=== PATIENT | female | born 1990 | race Caucasian/White ===

== ENCOUNTER 2016-02-23 11:18 | Inpatient (IN) | payer BC, MEDICAID ==
[~2016-02-23] VITALS: Ht 167.6 cm; Wt 77.1 kg
[2016-02-23 11:56] VITALS: BMI 27.4
[2016-02-23] MEDS ORDERED: TERBUTALINE 1 MG/ML VIAL SUBQ PRN (13:50)
[2016-02-23] MEDS ORDERED: FAMOTIDINE 20 MG INJ IV PRN (13:50)
[2016-02-23] MEDS ORDERED: LIDOCAINE 1% 30 ML PF INFILTRATE ONE (13:50)
[2016-02-23] MEDS ORDERED: LIDOCAINE 1% BUFFERED 1 ML SYR INTRADERM PRN (13:50)
[2016-02-23] MEDS ORDERED: PROMETHAZINE 25 MG/ML VIAL IV PRN (13:50)
[2016-02-23] MEDS ORDERED: METOCLOPRAMIDE 10 MG/2 ML VIAL IV PUSH PRN (13:50)
[2016-02-23] MEDS ORDERED: ONDANSETRON 4 MG VIAL IV PRN (13:50)
[2016-02-23] MEDS ORDERED: CEFAZOLIN (LD/OB) 100 ML IV PRN (13:50)
[2016-02-23] MEDS ORDERED: ALU/MAG/SIM 30 ML UDC PO PRN (13:50)
[2016-02-23] MEDS ORDERED: FAMOTIDINE 20 MG TAB PO PRN (13:50)
[2016-02-23] MEDS ORDERED: LACT RINGERS 1,000 ML IV SCH (13:50)
[2016-02-23] MEDS ORDERED: OXYTOCIN 15 UNITS/250 ML NS 250 ML IV SCH ×2 (13:50→22:40)
[2016-02-23] MEDS ORDERED: ACETAMINOPHEN 325 MG TAB PO PRN (13:50)
[2016-02-23] MEDS ORDERED: FENTANYL 100 MCG/2 ML AMP ONE (14:40)
[2016-02-23] MEDS ORDERED: ROPIV/FENT 0.2%-2MCG/ML 100 ML EPIDURAL ONE (14:40)
[2016-02-23] MEDS ORDERED: LACT RINGERS 500 ML IV PRN (15:30)
[2016-02-23] MEDS ORDERED: SODIUM CHLORIDE 0.9% 500 ML IV PRN (15:30)
[2016-02-23] MEDS ORDERED: FENTANYL 100 MCG/2 ML AMP EPIDURAL ONE (15:30)
[2016-02-23] MEDS ORDERED: ROPIV/FENT 0.2%-2MCG/ML 100 ML EPIDURAL SCH (15:30)
[2016-02-23] MEDS ORDERED: LACT RINGERS 500 ML IV ONE (15:30)
[2016-02-23] MEDS ORDERED: LIDOCAINE 1% 30 ML PF ONE (19:54)
[2016-02-23] MEDS ORDERED: **ONLY ANESTEHSIA MAY ORDER OPIATES WHILE ON EPIDURAL XX SCH (20:00)
[2016-02-23 22:30] VITALS: BP_SYST 125; RESP 20; TEMP 99.2
[2016-02-23] MEDS ORDERED: TDaP 0.5 ML VIAL IM.VACC ONE (22:40)
[2016-02-23] MEDS ORDERED: SALINE FLUSH 10 ML FLUSH PRN (22:40)
[2016-02-23] MEDS ORDERED: MAG HYDROX 30 ML UDC PO PRN (22:40)
[2016-02-23 22:45] VITALS: BP_SYST 123; RESP 18
[2016-02-23 23:00] VITALS: BP_SYST 127; RESP 18
[2016-02-23 23:15] VITALS: BP_SYST 126; RESP 18
[2016-02-23 23:30] VITALS: BP_SYST 127; RESP 16
[2016-02-23] MEDS: Ibuprofen 600 MG TAB PO SCH (23:37)
[2016-02-24] VITALS (7 sets, daily range): BP systolic 103–131; RESP 16–19; TEMP 97.4–98.2
[2016-02-24] MEDS ORDERED: DERMOPLAST SPRAY TOPICAL PRN (01:00)
[2016-02-24] MEDS ORDERED: ASTRINGENT MED PADS 40'S TOPICAL PRN (01:00)
[2016-02-24] MEDS: Ibuprofen 600 MG TAB PO SCH ×3 (05:37→18:37)
[2016-02-24] MEDS: DOCUSATE SOD 100 MG CAP PO SCH (09:11)
[2016-02-25] MEDS: Ibuprofen 600 MG TAB PO SCH ×4 (00:22→17:50)
[2016-02-25 05:43] VITALS: BP_SYST 116; RESP 20; TEMP 97.4
[2016-02-25] MEDS: DOCUSATE SOD 100 MG CAP PO SCH (08:59)
[2016-02-25 09:34] VITALS: BP_SYST 114; TEMP 98.1
[2016-02-25 09:35] VITALS: RESP 16
[2016-02-25 17:12] VITALS: BP_SYST 114; RESP 16; TEMP 98.1
[2016-02-25 17:38] VITALS: BP_SYST 132
[2016-02-25 17:39] VITALS: RESP 20; TEMP 98.2
== END 2016-02-25 18:04 | disposition home or self-care (01) | DRG 775 ==
LOC: LDOP 11:18 → LD 13:38 → OB 02-24 01:38
PROVIDERS: ADMIT Obstetrics & Gynecology Reproductive Endocrinology; ATTEND Obstetrics & Gynecology Reproductive Endocrinology
PROC: 10E0XZZ Delivery of Products of Conception, External Approach (ICD-10-PCS; principal; 2016-02-23)
PROC: 0HQ9XZZ Repair Perineum Skin, External Approach (ICD-10-PCS; 2016-02-23)
CPT/HCPCS: 59025; 81002; 82803; 85014; 85018; 85025; 86850; 86900; 86901